=== PATIENT | male | born 1945 | race Asian ===

== ENCOUNTER → 2018-11-08 | Outpatient (CLI) | payer MEDICARE, MEDICAID | END | disposition home or self-care (01) | LOC: RADPV 10:30 | PROVIDERS: ATTEND Family Medicine | DX: M25.462 Effusion, left knee (principal) ==

== ENCOUNTER 2024-02-03 03:28 | Inpatient (IN) | payer MEDICARE, MEDICAID ==
[~2024-02-03] VITALS: Ht 162.6 cm; Wt 68.6 kg
[2024-02-03] VITALS (20 sets, daily range): BP systolic 101–145; BP diastolic 52–79; PULSE 56–125; RESP 18–30; TEMP 97.7–98.4; O2SAT 97–99
[2024-02-03] MEDS: ALBUTEROL SULFATE 2.5 MG/0.5 ML NEB SOLUTION NEB ONE (03:33)
[2024-02-03] MEDS: IPRATROPIUM BROMIDE 0.5 MG/2.5 ML NEB SOLUTION NEB ONE (03:33)
[2024-02-03] MEDS: DEXAMETHASONE SOD PHOS 4 MG/ML VIAL IVP ONE (04:04)
[2024-02-03] MEDS: ACETAMINOPHEN 1000 MG/ISO-OSM 100 ML IV ONE (04:05)
[2024-02-03] MEDS: SODIUM CHLORIDE 0.9% 1,000 ML IV ONE (04:05)
[2024-02-03 04:14] LABS: BASOPHILS % (AUTO) 0.2 % (0.0-2.0); EOSINOPHILS % (AUTO) 2.7 % (1.0-6.0); HEMATOCRIT 40.1 % (41-53); HEMOGLOBIN 12.9 g/dL (13.5-17.5); LYMPHOCYTES # (AUTO) 2.4 K/uL (1.0-4.8); LYMPHOCYTES % (AUTO) 18.5 % (22.0-44.0); MEAN CORPUSCULAR HGB CONC 32.3 G/dL (31.0-37.0); MEAN CORPUSCULAR VOLUME 90 fL (80-100); MONOCYTES # (AUTO) 0.3 K/uL (0.1-1.0); MONOCYTES % (AUTO) 2.2 % (2.0-9.0); NEUTROPHILS # (AUTO) 10.1 K/uL (1.8-7.7); NEUTROPHILS % (AUTO) 76.4 % (40.0-70.0); PLATELET COUNT (AUTO) 145 K/uL (150-450); RED BLOOD CELL COUNT(AUTO) 4.47 MIL/uL (4.50-5.90); RED CELL DISTRIBUTION WIDTH 14.4 % (11.5-14.5); WHITE BLOOD COUNT (AUTO) 13.2 K/uL (4.5-11.0)
[2024-02-03 04:25] LABS: ANION GAP 12 mmol/L (8-16); CALCIUM, TOTAL 8.7 mg/dL (8.8-10.5); CARBON DIOXIDE 25 mmol/L (22-29); CHLORIDE 102 mmol/L (98-107); CREATININE 1.78 mg/dL (0.60-1.30); GLOMERULAR FILTR. RATE CALC 37 mL/min (>60); GLUCOSE,RANDOM 112 mg/dL (70-110); SODIUM SERUM 139 mmol/L (136-145); UREA NITROGEN, BLOOD 28 mg/dL (7-18)
[2024-02-03 04:32] LABS: PROTHROMBIN TIME 10.5 SEC (9.4-11.6)
[2024-02-03] MEDS: AZITHROMYCIN 500 MG/NS 250 ML IV ONE (04:32)
[2024-02-03] MEDS: CefTRIAXone 1 GM/DEXTROSE 50 ML IV ONE (04:33)
[2024-02-03 04:36] LABS: B-TYPE NATRIURETIC PEPTIDE 43 pg/mL (0-100)
[2024-02-03 04:39] LABS: LACTIC ACID 2.2 mmol/L (0.4-2.0)
[2024-02-03 04:40] LABS: TROPONIN I-HIGH SENSITIVITY 181 ng/L (<76)
[2024-02-03 04:50] LABS: ALANINE AMINOTRANSFERASE 26 U/L (12-78); ALBUMIN 2.8 g/dL (3.4-5.0); ALKALINE PHOSPHATASE 72 U/L (46-116); ASPARTATE AMINOTRANSFERASE 29 U/L (15-37); BILIRUBIN,TOTAL 0.4 mg/dL (0.1-1.0); CREATINE KINASE, TOTAL ONLY 83 U/L (39-308); TOTAL PROTEIN, SERUM 7.1 g/dL (6.4-8.2)
[2024-02-03] MEDS: REMDESIVIR 200 MG in SODIUM CHLORIDE 0.9% 250 ML IV ONE (06:12)
[2024-02-03 06:46] LABS: TROPONIN I-HIGH SENSITIVITY 2364 ng/L (<76)
[2024-02-03] MEDS ORDERED: HEPARIN SODIUM,PORCINE 5,000 UNITS/ML VIAL IVP PRN (07:00)
[2024-02-03] MEDS: HEPARIN SODIUM,PORCINE 5,000 UNITS/ML VIAL IVP ONE (07:45)
[2024-02-03] MEDS: HEPARIN SODIUM 25000 UNITS/D5W 250 ML IV PRN (07:55)
[2024-02-03 08:16] LABS: BASOPHILS % (AUTO) 0.2 % (0.0-2.0); EOSINOPHILS % (AUTO) 0.1 % (1.0-6.0); HEMATOCRIT 35.8 % (41-53); HEMOGLOBIN 11.6 g/dL (13.5-17.5); LYMPHOCYTES # (AUTO) 0.3 K/uL (1.0-4.8); LYMPHOCYTES % (AUTO) 3.1 % (22.0-44.0); MEAN CORPUSCULAR HGB CONC 32.3 G/dL (31.0-37.0); MEAN CORPUSCULAR VOLUME 90 fL (80-100); MONOCYTES # (AUTO) 0.4 K/uL (0.1-1.0); MONOCYTES % (AUTO) 3.8 % (2.0-9.0); NEUTROPHILS # (AUTO) 9.4 K/uL (1.8-7.7); PLATELET COUNT (AUTO) 135 K/uL (150-450); RED BLOOD CELL COUNT(AUTO) 3.99 MIL/uL (4.50-5.90); RED CELL DISTRIBUTION WIDTH 14.5 % (11.5-14.5); WHITE BLOOD COUNT (AUTO) 10.1 K/uL (4.5-11.0)
[2024-02-03 08:19] LABS: NEUTROPHILS % (AUTO) 92.8 % (40.0-70.0)
[2024-02-03 08:27] LABS: CALCIUM, TOTAL 8.1 mg/dL (8.8-10.5); CREATININE 1.7 mg/dL (0.60-1.30); POTASSIUM 4.6 mmol/L (3.5-5.1)
[2024-02-03 08:43] LABS: TROPONIN I-HIGH SENSITIVITY 3420 ng/L (<76)
[2024-02-03 08:44] LABS: INR 1.1 (0.9-1.1); PROTHROMBIN TIME 11.3 SEC (9.4-11.6)
[2024-02-03] MEDS: ATORVASTATIN CALCIUM 40 MG TABLET PO SCH (09:02)
[2024-02-03] MEDS: ASPIRIN 81 MG DR TABLET PO SCH (09:02)
[2024-02-03] MEDS: ASCORBIC ACID 500 MG TABLET PO SCH (10:15)
[2024-02-03] MEDS: ZINC SULFATE 220 MG CAPSULE PO SCH (10:15)
[2024-02-03] MEDS: LANSOPRAZOLE 30 MG CAPSULE PO SCH (11:23)
[2024-02-03] MEDS ORDERED: SODIUM BICARBONATE 50 MEQ/50 ML VIAL ONE (14:13)
[2024-02-03] MEDS ORDERED: IOHEXOL 300 MG/ML 100 ML VIAL ONE (14:13)
[2024-02-03] MEDS ORDERED: LIDOCAINE/PF 1% 30 ML VIAL ONE (14:13)
[2024-02-03] MEDS ORDERED: HEPARIN SODIUM 1000 UNITS/NS 1,000 ML ONE (14:13)
[2024-02-03] MEDS ORDERED: REMDESIVIR 200 MG in SODIUM CHLORIDE 0.9% 250 ML IV ONE (14:45)
[2024-02-03] MEDS ORDERED: MIDAZOLAM HCL 2 MG/2 ML VIAL ONE (15:01)
[2024-02-03] MEDS ORDERED: FentaNYL CITRATE PF 100 MCG/2 ML VIAL ONE (15:01)
[2024-02-03] MEDS ORDERED: IOHEXOL 300 MG/ML 50 ML VIAL ONE (16:17)
[2024-02-03] MEDS: HEPARIN SODIUM 1000 UNITS/NS 1,000 ML IARTER ONE (16:31)
[2024-02-03] MEDS: LIDOCAINE 1% 30 ML/SOD BICARB 8.4% 4 ML SQ ONE (16:32)
[2024-02-03] MEDS: FentaNYL CITRATE PF 100 MCG/2 ML VIAL IVP ONE ×3 (16:33→16:35)
[2024-02-03] MEDS: IOHEXOL 300 MG/ML 100 ML VIAL ICOR ONE (16:36)
[2024-02-03] MEDS: DEXAMETHASONE 4 MG TABLET PO SCH (18:06)
[2024-02-03 18:24] LABS: COVID AG,FIA SOURCE NASAL SWAB
[2024-02-03 20:45] LABS: SARS-COV2 (COVID) ANTIGEN,FIA Positive (Negative)
[2024-02-03 22:40] LABS: GLUCOMETER DEV NAME(LOC) ICUN.5; GLUCOSE,POINT OF CARE 315 MG/DL (70-110)
[2024-02-04] VITALS: BP 136/72; PULSE 60; RESP 16; TEMP 98.7
[2024-02-04 04:00] VITALS: BP 138/73; PULSE 63; RESP 10; TEMP 98.6
[2024-02-04 05:17] LABS: BASOPHILS % (AUTO) 0.1 % (0.0-2.0); EOSINOPHILS % (AUTO) 0 % (1.0-6.0); HEMATOCRIT 38.7 % (41-53); HEMOGLOBIN 12.8 g/dL (13.5-17.5); LYMPHOCYTES # (AUTO) 0.7 K/uL (1.0-4.8); LYMPHOCYTES % (AUTO) 7.7 % (22.0-44.0); MEAN CORPUSCULAR HEMOGLOBIN 29.6 pg (26.0-34.0); MEAN CORPUSCULAR HGB CONC 33.2 G/dL (31.0-37.0); MEAN CORPUSCULAR VOLUME 89 fL (80-100); MONOCYTES # (AUTO) 0.4 K/uL (0.1-1.0); MONOCYTES % (AUTO) 3.9 % (2.0-9.0); NEUTROPHILS # (AUTO) 8.4 K/uL (1.8-7.7); PLATELET COUNT (AUTO) 147 K/uL (150-450); RED BLOOD CELL COUNT(AUTO) 4.34 MIL/uL (4.50-5.90); RED CELL DISTRIBUTION WIDTH 14.5 % (11.5-14.5); WHITE BLOOD COUNT (AUTO) 9.5 K/uL (4.5-11.0)
[2024-02-04 05:23] LABS: NEUTROPHILS % (AUTO) 88.3 % (40.0-70.0)
[2024-02-04 05:33] LABS: CHOL/HDL RATIO 2.4 (4.2-7.3)
[2024-02-04 05:34] LABS: ALBUMIN 2.4 g/dL (3.4-5.0); BILIRUBIN,TOTAL 0.3 mg/dL (0.1-1.0); CREATININE 1.33 mg/dL (0.60-1.30); POTASSIUM 5.2 mmol/L (3.5-5.1); TOTAL PROTEIN, SERUM 6.5 g/dL (6.4-8.2)
[2024-02-04 05:36] LABS: HEMOGLOBIN A1C 6.4 % (3.8-5.6)
[2024-02-04 05:46] LABS: TROPONIN I-HIGH SENSITIVITY 3948 ng/L (<76)
[2024-02-04 08:00] VITALS: BP 133/75; PULSE 58; RESP 14; TEMP 98.3
[2024-02-04] MEDS: REMDESIVIR 100 MG in SODIUM CHLORIDE 0.9% 250 ML IV SCH (08:37)
[2024-02-04] MEDS: METOPROLOL TARTRATE 25 MG TABLET PO SCH (09:17)
[2024-02-04] MEDS ORDERED: ALBUTEROL SULFATE 2.5 MG/0.5 ML NEB SOLUTION NEB PRN (09:30)
[2024-02-04] MEDS: ISOSORBIDE MONONITRATE 60 MG ER TABLET PO SCH (11:35)
[2024-02-04] MEDS: FINASTERIDE 5 MG TABLET PO SCH (11:35)
[2024-02-04] MEDS: OLMESARTAN MEDOXOMIL 40 MG TABLET PO SCH (11:36)
[2024-02-04] MEDS: NIFEdipine 30 MG ER TABLET PO SCH (11:37)
[2024-02-04] MEDS: MONTELUKAST SODIUM 10 MG TABLET PO SCH (11:37)
[2024-02-04] MEDS: TAMSULOSIN HCL 0.4 MG CAPSULE PO SCH (11:37)
[2024-02-04] MEDS: ISOSORBIDE MONONITRATE 30 MG ER TABLET PO SCH (11:39)
[2024-02-04 12:00] VITALS: BP 142/70; PULSE 55; PULSE 61; RESP 18; TEMP 98.2
[2024-02-04 16:00] VITALS: BP 112/70; PULSE 70; RESP 14; TEMP 99
[2024-02-04 20:00] VITALS: BP 110/60; PULSE 81; RESP 26; TEMP 98.8
[2024-02-05] VITALS: BP 104/64; PULSE 77; RESP 21; TEMP 98.6
[2024-02-05 04:00] VITALS: BP 106/61; PULSE 66; RESP 15; TEMP 97.7
[2024-02-05 06:05] LABS: EOSINOPHILS % (AUTO) 0 % (1.0-6.0); HEMATOCRIT 39.4 % (41-53); HEMOGLOBIN 12.8 g/dL (13.5-17.5); LYMPHOCYTES # (AUTO) 1.1 K/uL (1.0-4.8); LYMPHOCYTES % (AUTO) 7.6 % (22.0-44.0); MEAN CORPUSCULAR HEMOGLOBIN 28.6 pg (26.0-34.0); MEAN CORPUSCULAR HGB CONC 32.4 G/dL (31.0-37.0); MEAN CORPUSCULAR VOLUME 88 fL (80-100); MONOCYTES # (AUTO) 0.8 K/uL (0.1-1.0); MONOCYTES % (AUTO) 5.6 % (2.0-9.0); NEUTROPHILS # (AUTO) 12.3 K/uL (1.8-7.7); PLATELET COUNT (AUTO) 162 K/uL (150-450); RED BLOOD CELL COUNT(AUTO) 4.47 MIL/uL (4.50-5.90); RED CELL DISTRIBUTION WIDTH 14.5 % (11.5-14.5); WHITE BLOOD COUNT (AUTO) 14.2 K/uL (4.5-11.0)
[2024-02-05 06:11] LABS: NEUTROPHILS % (AUTO) 86.8 % (40.0-70.0)
[2024-02-05 06:15] LABS: ALBUMIN 2.2 g/dL (3.4-5.0); BILIRUBIN,TOTAL 0.3 mg/dL (0.1-1.0); CALCIUM, TOTAL 8.4 mg/dL (8.8-10.5); CREATININE 1.4 mg/dL (0.60-1.30); POTASSIUM 4.9 mmol/L (3.5-5.1); TOTAL PROTEIN, SERUM 6.3 g/dL (6.4-8.2)
[2024-02-05 06:22] LABS: TROPONIN I-HIGH SENSITIVITY 2235 ng/L (<76)
[2024-02-05 08:00] VITALS: BP 112/66; PULSE 68; RESP 18; TEMP 98
[2024-02-05 12:00] VITALS: BP 120/68; PULSE 71; RESP 16; TEMP 98.7
[2024-02-05 16:00] VITALS: BP 125/66; PULSE 89; RESP 18; TEMP 98.3
[2024-02-05 20:00] VITALS: BP 104/63; PULSE 93; RESP 20; TEMP 98.4
[2024-02-06] VITALS (7 sets, daily range): BP systolic 99–125; BP diastolic 57–68; PULSE 59–90; RESP 15–24; TEMP 97.5–98.1
[2024-02-06] MEDS: HEPARIN SODIUM,PORCINE 5,000 UNITS/ML VIAL IVP PRN (01:20)
[2024-02-06 06:08] LABS: BASOPHILS % (AUTO) 0.4 % (0.0-2.0); EOSINOPHILS % (AUTO) 0 % (1.0-6.0); HEMATOCRIT 38.9 % (41-53); HEMOGLOBIN 12.8 g/dL (13.5-17.5); LYMPHOCYTES % (AUTO) 7.5 % (22.0-44.0); MEAN CORPUSCULAR HEMOGLOBIN 28.8 pg (26.0-34.0); MEAN CORPUSCULAR HGB CONC 32.8 G/dL (31.0-37.0); MEAN CORPUSCULAR VOLUME 88 fL (80-100); MONOCYTES # (AUTO) 0.8 K/uL (0.1-1.0); MONOCYTES % (AUTO) 6.2 % (2.0-9.0); NEUTROPHILS # (AUTO) 11.2 K/uL (1.8-7.7); PLATELET COUNT (AUTO) 147 K/uL (150-450); RED BLOOD CELL COUNT(AUTO) 4.42 MIL/uL (4.50-5.90); RED CELL DISTRIBUTION WIDTH 14.6 % (11.5-14.5); WHITE BLOOD COUNT (AUTO) 13.1 K/uL (4.5-11.0)
[2024-02-06 06:09] LABS: NEUTROPHILS % (AUTO) 85.9 % (40.0-70.0)
[2024-02-06 06:29] LABS: ALBUMIN 2.4 g/dL (3.4-5.0); BILIRUBIN,TOTAL 0.3 mg/dL (0.1-1.0); CALCIUM, TOTAL 8.4 mg/dL (8.8-10.5); CREATININE 1.45 mg/dL (0.60-1.30); POTASSIUM 4.9 mmol/L (3.5-5.1); TOTAL PROTEIN, SERUM 6.3 g/dL (6.4-8.2)
[2024-02-06] MEDS: ALLOPURINOL 100 MG TABLET PO SCH (08:00)
[2024-02-06] MEDS ORDERED: SODIUM CHLORIDE 0.9% 500 ML IV ONE (09:26)
[2024-02-06] MEDS: HEPARIN SODIUM,PORCINE 5,000 UNITS/ML VIAL SQ SCH (20:35)
[2024-02-07] VITALS (7 sets, daily range): BP systolic 114–135; BP diastolic 51–75; PULSE 72–78; RESP 16–18; TEMP 97.4–98.7
[2024-02-07 06:10] LABS: ALBUMIN 2.2 g/dL (3.4-5.0); BILIRUBIN,TOTAL 0.3 mg/dL (0.1-1.0); CALCIUM, TOTAL 8.3 mg/dL (8.8-10.5); CREATININE 1.66 mg/dL (0.60-1.30); POTASSIUM 4.9 mmol/L (3.5-5.1); TOTAL PROTEIN, SERUM 5.6 g/dL (6.4-8.2)
[2024-02-07] MEDS ORDERED: CLOP75TA60 PO (16:00)
[2024-02-07] MEDS ORDERED: PRED10TA3 PO (16:04)
[2024-02-07] MEDS ORDERED: ASCO500C18 PO (16:04)
[2024-02-08 04:22] VITALS: BP 117/50; PULSE 71; RESP 18; TEMP 97.5
[2024-02-08 04:24] VITALS: BP 121/84; PULSE 64; RESP 18; TEMP 97.6
[2024-02-08 08:07] VITALS: BP 127/70; PULSE 78; RESP 16; TEMP 97.8
[2024-02-08] MEDS: CLOPIDOGREL BISULFATE 75 MG TABLET PO SCH (09:12)
[2024-02-08] MEDS: ISOSORBIDE MONONITRATE 30 MG ER TABLET PO SCH (09:12)
== END 2024-02-08 12:10 | disposition home or self-care (01) | DRG 190 ==
LOC: EMS 03:28 → EDH 05:55 → ICU 10:10 → 5S 02-06 09:05
PROVIDERS: ADMIT Internal Medicine; ATTEND Family Medicine
PROC: XW033E5 Introduction of Remdesivir Anti-infective into Peripheral Vein, Percutaneous Approach, New Technology Group 5 (ICD-10-PCS; principal; 2024-02-03)
PROC: 4A023N7 Measurement of Cardiac Sampling and Pressure, Left Heart, Percutaneous Approach (ICD-10-PCS; 2024-02-03)
PROC: B2111ZZ Fluoroscopy of Multiple Coronary Arteries using Low Osmolar Contrast (ICD-10-PCS; 2024-02-03)
PROC: B2181ZZ Fluoroscopy of Left Internal Mammary Bypass Graft using Low Osmolar Contrast (ICD-10-PCS; 2024-02-03)
PROC: B41F1ZZ Fluoroscopy of Right Lower Extremity Arteries using Low Osmolar Contrast (ICD-10-PCS; 2024-02-03)
PROC: 5A09357 Assistance with Respiratory Ventilation, Less than 24 Consecutive Hours, Continuous Positive Airway Pressure (ICD-10-PCS; 2024-02-03)
PROC: B2131ZZ Fluoroscopy of Multiple Coronary Artery Bypass Grafts using Low Osmolar Contrast (ICD-10-PCS; 2024-02-03)
DX: I21.4 Non-ST elevation (NSTEMI) myocardial infarction (principal); J96.21 Acute and chronic respiratory failure with hypoxia; J12.82 Pneumonia due to coronavirus disease 2019; U07.1 COVID-19; I50.33 Acute on chronic diastolic (congestive) heart failure; J44.0 Chronic obstructive pulmonary disease with (acute) lower respiratory infection; I13.0 Hypertensive heart and chronic kidney disease with heart failure and stage 1 through stage 4 chronic kidney disease, or unspecified chronic kidney disease; T82.898A Other specified complication of vascular prosthetic devices, implants and grafts, initial encounter; Y83.2 Surgical operation with anastomosis, bypass or graft as the cause of abnormal reaction of the patient, or of later complication, without mention of misadventure at the time of the procedure; Y92.89 Other specified places as the place of occurrence of the external cause; N17.9 Acute kidney failure, unspecified; J47.0 Bronchiectasis with acute lower respiratory infection; I08.1 Rheumatic disorders of both mitral and tricuspid valves; I25.10 Atherosclerotic heart disease of native coronary artery without angina pectoris; E78.5 Hyperlipidemia, unspecified; N18.30 Chronic kidney disease, stage 3 unspecified; Z86.11 Personal history of tuberculosis; Z87.891 Personal history of nicotine dependence; Z99.81 Dependence on supplemental oxygen; Z79.82 Long term (current) use of aspirin; Z79.899 Other long term (current) drug therapy; Z79.2 Long term (current) use of antibiotics
CPT/HCPCS: 71045; 80048; 80053; 80061; 80076; 82550; 82962; 83036; 83605; 83880; 84484; 85025; 85610; 85730; 87040; 87081; 87635; 93005; 93306; 93459; 94640; 94660; 99291; J0131; J0456; J0696; J1100; J1644; J2250; J3010; J3490; J7030; J7040; J7050; J8540; Q9967; 36415-L1; 36415-TC; J7613